=== PATIENT | male | born 1995 | race Caucasian/White ===

== ENCOUNTER → 2017-01-16 | Outpatient (CLI) | payer BC ==
[2017-01-16 19:44] LABS: Basophils % (A) 1 %; CH 26.1; CHCM 32.4; Eosinophils # (A) 0.1 k/uL (0-0.7); Eosinophils % (A) 2 %; HCT 48.9 % (39.0-53.0); HDW 2.44; HGB 15.4 gm/dL (13.0-17.5); Large Platelets Flag Slight; Luc # (Auto) 0.15; Luc % (Auto) 2; Lymphocytes # (A) 2.3 k/uL (1.0-4.8); Lymphocytes % (A) 30 %; MCH 25.5 pg (25.0-35.0); MCHC 31.5 g/dL (31.0-37.0); MCV 80.9 fL (80.0-100.0); Mean Platelet Volume 12.4; Monocytes # (A) 0.6 k/uL (0-1.0); Monocytes % (A) 7 %; Neutrophils # (A) 4.4 k/uL (1.3-7.7); Neutrophils % (A) 58 %; RBC 6.04 m/uL (4.30-5.90); RDW 14.1 % (11.5-15.5); WBC 7.6 k/uL (4.0-11.0); WBC (Perox) 7.66
[2017-01-16 19:52] LABS: ALT 49 U/L (21-72); AST 40 U/L (17-59); Alkaline Phosphatase 137 U/L (38-126); Anion Gap 14 mmol/L; Blood Urea Nitrogen 9 mg/dL (9-20); Calcium 9.8 mg/dL (8.4-10.2); Carbon Dioxide 27 mmol/L (22-30); Chloride 98 mmol/L (98-107); Cholesterol 113 mg/dL (<200); Glucose 87 mg/dL (74-99); HDL Cholesterol 36 mg/dL (40-60); Non-African American GFR(MDRD) >60 (>60 ml/min/1.73 sqM); Potassium 4.4 mmol/L (3.5-5.1); Sodium 139 mmol/L (137-145); Total Bilirubin 0.6 mg/dL (0.2-1.3); Total Protein 7.2 g/dL (6.3-8.2)
== END | disposition home or self-care (01) ==
LOC: MMGSC 10:08
PROVIDERS: ATTEND Family Medicine
DX: Z00.00 Encounter for general adult medical examination without abnormal findings (principal); R25.1 Tremor, unspecified; R51 Headache
CPT/HCPCS: 36415; 80053; 80061; 84439; 84443; 85025

== ENCOUNTER 2019-01-14 23:33 | Emergency (ER) | payer BC ==
[2019-01-15] MEDS ORDERED: IBUPROFEN 600 MG TAB PO STA (00:06)
[2019-01-15] MEDS ORDERED: SODIUM CHLORIDE 0.9% 1,000 ML IV STA (00:07)
[2019-01-15 01:13] LABS: Appearance,Urine Clear (Clear); Bilirubin,Urine Negative (Negative); Blood,Urine Negative (Negative); Color,Urine Light Yellow; Glucose,Urine (UA) Negative (Negative); Ketones,Urine Negative (Negative); Leukocyte Esterase,Urine Negative (Negative); Nitrite,Urine Negative (Negative); Protein,Urine Negative (Negative); Specific Gravity,Urine 1.007 (1.001-1.035); Urobilinogen,Urine <2.0 mg/dL (<2.0)
[2019-01-15 01:13] LABS: Basophils % (A) 0 %; Eosinophils # (A) 0.1 k/uL (0-0.7); Eosinophils % (A) 1 %; Lymphocytes # (A) 0.6 k/uL (1.0-4.8); Lymphocytes % (A) 6 %; MCH 26.1 pg (25.0-35.0); MCV 76.7 fL (80.0-100.0); Mean Platelet Volume 9.5; Monocytes # (A) 0.5 k/uL (0-1.0); Monocytes % (A) 5 %; Neutrophils # (A) 9.2 k/uL (1.3-7.7); Neutrophils % (A) 88 %; Platelet Count 180 k/uL (150-450); RBC 5.36 m/uL (4.30-5.90); RDW 12.9 % (11.5-15.5); WBC 10.4 k/uL (3.8-10.6)
[2019-01-15 01:22] LABS: ALT 57 U/L (21-72); AST 50 U/L (17-59); African American GFR (CKD) >90 (>60 ml/min/1.73 sqM); Albumin 4.3 g/dL (3.5-5.0); Alkaline Phosphatase 176 U/L (38-126); Anion Gap 8 mmol/L; Blood Urea Nitrogen 12 mg/dL (9-20); Calcium 9.1 mg/dL (8.4-10.2); Carbon Dioxide 30 mmol/L (22-30); Chloride 98 mmol/L (98-107); Glucose 120 mg/dL (74-99); Potassium 3.8 mmol/L (3.5-5.1); Sodium 136 mmol/L (137-145); Total Bilirubin 0.9 mg/dL (0.2-1.3); Total Protein 6.6 g/dL (6.3-8.2)
--- NOTE | 2019-01-15 01:47 | XR ---
EXAM: XR Chest, 2 Views CLINICAL HISTORY: Reason: cough TECHNIQUE: Frontal and lateral views of the chest. COMPARISON: No relevant prior studies available. FINDINGS: Lungs: Unremarkable. No consolidation. Pleural space: Unremarkable. No pneumothorax. Heart: Unremarkable. No cardiomegaly. Mediastinum: Unremarkable. Bones/joints: Unremarkable. IMPRESSION: Normal chest x-rays.
--- NOTE | 2019-01-15 02:12 | CT ---
EXAM: CT Head Without Intravenous Contrast CLINICAL HISTORY: pain TECHNIQUE: Axial computed tomography images of the head/brain without intravenous contrast. CTDI is 37.4 mGy and DLP is 1275.3 mGy-cm. This CT exam was performed using one or more of the following dose reduction techniques: automated exposure control, adjustment of the mA and/or kV according to patient size, and/or use of iterative reconstruction technique. COMPARISON: No relevant prior studies available. FINDINGS: Brain: Unremarkable. No hemorrhage. No significant white matter disease. No edema. Ventricles: Unremarkable. No ventriculomegaly. Bones/joints: Unremarkable. No acute fracture. Soft tissues: Unremarkable. Sinuses: Unremarkable as visualized. No acute sinusitis. Mastoid air cells: Unremarkable as visualized. No mastoid effusion. IMPRESSION: No acute abnormality in the brain
--- NOTE | 2019-01-15 02:15 | CT ---
EXAM: CT Cervical Spine With Intravenous Contrast CLINICAL HISTORY: Reason: Pain TECHNIQUE: Axial computed tomography images of the cervical spine with intravenous contrast. CTDI is 37.4 mGy and DLP is 1275.3 mGy-cm. This CT exam was performed using one or more of the following dose reduction techniques: automated exposure control, adjustment of the mA and/or kV according to patient size, and/or use of iterative reconstruction technique. COMPARISON: No relevant prior studies available. FINDINGS: Vertebrae: Unremarkable. No acute fracture. Discs/spinal canal/neural foramina: No acute findings. No spinal canal stenosis. Soft tissues: Unremarkable. IMPRESSION: No evidence for fracture or malalignment of cervical spine.
--- NOTE | 2019-01-15 02:32 | CT ---
EXAM: CT Thoracic Spine with Intravenous Contrast CLINICAL HISTORY: Pain TECHNIQUE: Axial computed tomography images of the thoracic spine without 100 mL of Isovue-300 intravenous contrast. DLP is 1275.3 mGy-cm. This CT exam was performed using one or more of the following dose reduction techniques: automated exposure control, adjustment of the mA and/or kV according to patient size, and/or use of iterative reconstruction technique. COMPARISON: No relevant prior studies available. FINDINGS: Vertebrae: Slight S-shaped scoliotic deformity of the thoracolumbar spine. No evidence for compression deformity. No evidence for lytic or blastic lesions. Discs/spinal canal/neural foramina: No acute findings. No evidence for erosive changes of the endplates to suggest osteomyelitis. No evidence for gas within the disc spaces. No spinal canal stenosis. Soft tissues: Unremarkable. No abnormal enhancement paraspinous tissues. Visualized portions of the lungs are unremarkable IMPRESSION: Unremarkable thoracic spine CT with contrast. If clinical concern exists for discitis or epidural abnormality further evaluation with MRI is recommended
[2019-01-15] MEDS ORDERED: ACETAMINOPHEN TAB 325 MG TAB PO STA (02:53)
--- NOTE | 2019-01-15 02:56 | ED ---
Fever HPI - General Chief Complaint: Fever Stated Complaint: Fever Time Seen by Provider: 01/14/19 23:45 Source: patient, family Mode of arrival: ambulatory Limitations: no limitations - History of Present Illness Initial Comments: The patient is a 24-year-old male who presents to the ED with reported fever since 9:00 pm. He also reported high thoracic/lumbar back pain. He reports to cold-like symptoms for the past week. Admits to a runny nose. He has had a mild cough. Denies productive cough. He denies cervical neck pain, headaches or visual changes. There is no reported confusion, slurred speech or unilateral numbness or weakness from the patient. He denies any chest pain or shortness of breath. No abdominal pain. Denies any diarrhea, constipation, melanotic stools or hematochezia. Denies any changes in his urination. Denies sexually transmitted infections. No history of IV drug use. Denies sore throat. No sick contacts or recent travel. There are no other alleviating, precipitating or modifying factors - Related Data Home Medications Medication Instructions Recorded Confirmed Zicam 1 tab PO Q3H PRN 01/14/19 01/14/19 Allergies Allergy/AdvReac Type Severity Reaction Status Date / Time No Known Allergies Allergy Verified 01/14/19 23:46 Review of Systems ROS Statement: Those systems with pertinent positive or pertinent negative responses have been documented in the HPI. ROS Other: All systems not noted in ROS Statement are negative. Past Medical History Past Medical History: No Reported History History of Any Multi-Drug Resistant Organisms: None Reported Past Surgical History: Appendectomy Past Psychological History: No Psychological Hx Reported Smoking Status: Never smoker Past Alcohol Use History: None Reported Past Drug Use History: None Reported General Exam Limitations: no limitations General appearance: alert, in no apparent distress Head exam: Present: atraumatic, normocephalic, normal inspection Eye exam: Present: normal appearance, PERRL, EOMI. Absent: scleral icterus, conjunctival injection, periorbital swelling ENT exam: Present: normal exam, mucous membranes moist Neck exam: Present: normal inspection, tenderness (mild paraspinal tenderness on the right near C7-T4. No spinous process tenderness. No nuchal rigidity. Patient can appropriately move his head in all directions without difficulty). Absent: meningismus, lymphadenopathy Respiratory exam: Present: normal lung sounds bilaterally. Absent: respiratory distress, wheezes, rales, rhonchi, stridor Cardiovascular Exam: Present: regular rate, normal rhythm, normal heart sounds. Absent: systolic murmur, diastolic murmur, rubs, gallop, clicks GI/Abdominal exam: Present: soft, normal bowel sounds. Absent: distended, tenderness, guarding, rebound, rigid Extremities exam: Present: normal inspection, full ROM, normal capillary refill. Absent: tenderness, pedal edema, joint swelling, calf tenderness Back exam: Present: normal inspection Neurological exam: Present: alert, oriented X3, CN II-XII intact Psychiatric exam: Present: normal affect, normal mood Skin exam: Present: warm, dry, intact, normal color. Absent: rash Course Vital Signs 01/14/19 01/15/19 01/15/19 23:35 02:04 03:26 Temperature 102.8 F H 100.2 F H 99.6 F Pulse Rate 115 H 100 110 H Respiratory 18 17 18 Rate Blood Pressure 131/69 109/55 109/65 O2 Sat by Pulse 100 98 98 Oximetry Medical Decision Making - Medical Decision Making The patient is placed in room 5. He is hooked up to continuous pulse ox and cardiac monitoring. Vitals are obtain and the patient has a temp of 102. He is given Motrin for fever control. I did recommend laboratory studies and a urinalysis. I also recommended a CT of the patient's brain, cervical and thor acic spine. The patient does agree to this. A chest x-ray was also performed. Upon return of the results I did discuss them with the patient. I discussed diagnosis, differential and treatment options. The patient's fever has improved. He reports to decrease pain. I did recommend a lumbar puncture. The risks and benefits are discussed. The patient's parents are at bedside. They do decline a lumbar puncture at this time. They state that they will take the patient home and observe him closely over the next 24 hours. I did stress to them that he does need close observation. They're to give Motrin and Tylenol every 4 hours for fever control. If the patient has any new or worsening s ymptoms they need to immediately bring the patient back to the emergency room. The patient and his parents were all in agreement with the treatment plan. He was discharged home in stable condition. - Lab Data Result diagrams: 01/15/19 01:00 01/15/19 01:00 Lab Results 01/15/19 01/15/19 01/15/19 Range/Units 00:39 01:00 01:00 WBC 10.4 (3.8-10.6) k/uL RBC 5.36 (4.30-5.90) m/uL Hgb 14.0 (13.0-17.5) gm/dL Hct 41.0 (39.0-53.0) % MCV 76.7 L (80.0-100.0) fL MCH 26.1 (25.0-35.0) pg MCHC 34.0 (31.0-37.0) g/dL RDW 12.9 (11.5-15.5) % Plt Count 180 (150-450) k/uL Neutrophils % 88 % Lymphocytes % 6 % Monocytes % 5 % Eosinophils % 1 % Basophils % 0 % Neutrophils # 9.2 H (1.3-7.7) k/uL Lymphocytes # 0.6 L (1.0-4.8) k/uL Monocytes # 0.5 (0-1.0) k/uL Eosinophils # 0.1 (0-0.7) k/uL Basophils # 0.0 (0-0.2) k/uL Sodium 136 L (137-145) mmol/L Potassium 3.8 (3.5-5.1) mmol/L Chloride 98 (98-107) mmol/L Carbon Dioxide 30 (22-30) mmol/L Anion Gap 8 mmol/L BUN 12 (9-20) mg/dL Creatinine 0.77 (0.66-1.25) mg/dL Est GFR (CKD-EPI)AfAm >90 (>60 ml/min/1.73 sqM) Est GFR (CKD-EPI)NonAf >90 (>60 ml/min/1.73 sqM) Glucose 120 H (74-99) mg/dL Plasma Lactic Acid Gurpreet (0.7-2.0) mmol/L Calcium 9.1 (8.4-10.2) mg/dL Total Bilirubin 0.9 (0.2-1.3) mg/dL AST 50 (17-59) U/L ALT 57 (21-72) U/L Alkaline Phosphatase 176 H (38-126) U/L Total Protein 6.6 (6.3-8.2) g/dL Albumin 4.3 (3.5-5.0) g/dL Urine Color Light Yellow Urine Appearance Clear (Clear) Urine pH 8.0 (5.0-8.0) Ur Specific [place] 1.007 (1.001-1.035) Urine Protein Negative (Negative) Urine Glucose (UA) Negative (Negative) Urine Ketones Negative (Negative) Urine Blood Negative (Negative) Urine Nitrite Negative (Negative) Urine Bilirubin Negative (Negative) Urine Urobilinogen <2.0 (<2.0) mg/dL Ur Leukocyte Esterase Negative (Negative) Influenza Type A RNA (Not Detectd) Influenza Type B (PCR) (Not Detectd) 01/15/19 01/15/19 Range/Units 01:00 01:00 WBC (3.8-10.6) k/uL RBC (4.30-5.90) m/uL Hgb (13.0-17.5) gm/dL Hct (39.0-53.0) % MCV (80.0-100.0) fL MCH (25.0-35.0) pg MCHC (31.0-37.0) g/dL RDW (11.5-15.5) % Plt Count (150-450) k/uL Neutrophils % % Lymphocytes % % Monocytes % % Eosinophils % % Basophils % % Neutrophils # (1.3-7.7) k/uL Lymphocytes # (1.0-4.8) k/uL Monocytes # (0-1.0) k/uL Eosinophils # (0-0.7) k/uL Basophils # (0-0.2) k/uL Sodium (137-145) mmol/L Potassium (3.5-5.1) mmol/L Chloride (98-107) mmol/L Carbon Dioxide (22-30) mmol/L Anion Gap mmol/L BUN (9-20) mg/dL Creatinine (0.66-1.25) mg/dL Est GFR (CKD-EPI)AfAm (>60 ml/min/1.73 sqM) Est GFR (CKD-EPI)NonAf (>60 ml/min/1.73 sqM) Glucose (74-99) mg/dL Plasma Lactic Acid Gurpreet 1.0 (0.7-2.0) mmol/L Calcium (8.4-10.2) mg/dL Total Bilirubin (0.2-1.3) mg/dL AST (17-59) U/L ALT (21-72) U/L Alkaline Phosphatase (38-126) U/L Total Protein (6.3-8.2) g/dL Albumin (3.5-5.0) g/dL Urine Color Urine Appearance (Clear) Urine pH (5.0-8.0) Ur Specific [place]ifer (1.001-1.035) Urine Protein (Negative) Urine Glucose (UA) (Negative) Urine Ketones (Negative) Urine Blood (Negative) Urine Nitrite (Negative) Urine Bilirubin (Negative) Urine Urobilinogen (<2.0) mg/dL Ur Leukocyte Esterase (Negative) Influenza Type A RNA Not Detected (Not Detectd) Influenza Type B (PCR) Not Detected (Not Detectd) Disposition Clinical Impression: Fever Disposition: HOME SELF-CARE Condition: Stable Instructions (If sedation given, give patient instructions): Fever in Adults (ED) Additional Instructions: Please follow-up with your primary care physician in 2-4 days. Return to the emergency room for any new or worsening symptoms Is patient prescribed a controlled substance at d/c from ED?: No Referrals: Effie Ramirez MD [Primary Care Provider] - 1-2 days Time of Disposition: 02:55
[2019-01-15 03:31] VITALS: BP 109/65; PULSE 110; RESP 18; TEMP 99.6
== END 2019-01-15 03:31 | disposition home or self-care (01) ==
LOC: EC 23:33
DX: R50.9 Fever, unspecified (principal); M54.6 Pain in thoracic spine; M54.5 Low back pain; R05 Cough; Z53.29 Procedure and treatment not carried out because of patient's decision for other reasons
CPT/HCPCS: 99284; 96360; 96361; 36415; 80053; 83605; 85025; 81003; 87502; 71046; 72129; 72126; 70450; Q9967

== ENCOUNTER 2022-03-14 16:07 | Emergency (ER) | payer BC ==
[2022-03-14 16:14] VITALS: BP 134/86; PULSE 74; RESP 16; TEMP 98
--- NOTE | 2022-03-14 16:51 | ED ---
Head Injury HPI - General Chief complaint: Head Injury Stated complaint: head injury Time Seen by Provider: 03/14/22 16:17 Source: patient, family, RN notes reviewed Mode of arrival: ambulatory Limitations: no limitations - History of Present Illness Initial comments: Patient is a pleasant 27-year-old male presents to the emergency room with complaints of mild headache and mild neck pain which he has not taken any medication ongoing with various degrees of intensity since accidentally running into a wall at work on Monday night. He reports also hitting his right shoulder on the wall is well. He denies any swelling bruising or range of motion impairment to his left shoulder. He denies any loss of consciousness at the time of the event. He did have some mild dizziness at the time of the injury but denies any at this time. He reports that with prolonged screen time his headache worsened slightly. He denies any nausea, vomiting, lethargy, altered mental status, wounds or bruises. Overall he is healthy and does not take any medications on a regular basis. His vaccinations are up-to-date. - Related Data Home Medications Medication Instructions Recorded Confirmed Zicam 1 tab PO Q3H PRN 01/14/19 01/14/19 Allergies/Adverse reactions: Allergies Allergy/AdvReac Type Severity Reaction Status Date / Time No Known Allergies Allergy Verified 03/14/22 16:14 Review of Systems ROS Statement: Those systems with pertinent positive or pertinent negative responses have been documented in the HPI. ROS Other: All systems not noted in ROS Statement are negative. Past Medical History Past Medical History: No Reported History History of Any Multi-Drug Resistant Organisms: None Reported Past Surgical History: Appendectomy, Orthopedic Surgery Past Psychological History: No Psychological Hx Reported Smoking Status: Never smoker Past Alcohol Use History: Occasional Past Drug Use History: None Reported General Exam Limitations: no limitations General appearance: alert, in no apparent distress Head exam: Present: atraumatic, normocephalic, normal inspection Eye exam: Present: normal appearance, PERRL, EOMI. Absent: scleral icterus, conjunctival injection, nystagmus, periorbital swelling ENT exam: Present: normal exam, mucous membranes moist Neck exam: Present: normal inspection. Absent: tenderness, meningismus, lymphadenopathy Respiratory exam: Absent: respiratory distress, accessory muscle use Cardiovascular Exam: Present: regular rate GI/Abdominal exam: Present: soft. Absent: distended Extremities exam: Present: normal inspection, full ROM, normal capillary refill. Absent: tenderness, pedal edema, joint swelling, calf tenderness Right Shoulder Exam: Present: normal inspection, full ROM. Absent: tenderness, swelling, abrasion, laceration, ecchymosis, deformity, crepitus, dislocation, erythema, tenderness over AC joint Back exam: Present: normal inspection, full ROM. Absent: tenderness Neurological exam: Present: alert, oriented X3, CN II-XII intact Expanded Neurological exam: Present: protecting the airway Cranial nerves: EOM's Intact: Normal, Gag Reflex: Normal Sensory exam: Upper Extremity Light Touch: Normal, Lower Extremity Light Touch: Normal, LE 2 Point Discrimination: Normal Motor strength exam: RUE: 5, LUE: 5, RLE: 5, LLE: 5 Eye Response: (4) open spontaneously Motor Response: (6) obeys commands Verbal Response: (5) oriented [place] Total: 15 Psychiatric exam: Present: normal affect, normal mood Skin exam: Present: warm, dry, intact, normal color. Absent: rash Course Vital Signs 03/14/22 16:10 Temperature 98 F Pulse Rate 74 Respiratory 16 Rate Blood Pressure 134/86 O2 Sat by Pulse 100 Oximetry Medical Decision Making - Medical Decision Making 27-year-old male presenting to the emergency room after hitting his head and shoulder on a wall Monday evening (2 days ago). No loss of consciousness or severe concussive symptoms. No focal neurological deficits or range of motion impairment to his left shoulder. Discussed risks benefits of computed tomography scan both patient and family at bedside agreeable to no need for diagnostic imaging. No indication for diagnostic testing or laboratory studies. Will discharge home with symptomatic treatment for headache and neck pain and continued monitoring of concussive symptoms. Return parameters to the emergency room discussed at length. Advised avoidance of contact sports or high impact activities until symptoms resolve. Case discussed with Dr. Nicholas. Disposition Clinical Impression: Concussion without loss of consciousness Disposition: HOME SELF-CARE Condition: Stable Instructions (If sedation given, give patient instructions): Concussion (ED) Additional Instructions: Please utilize ibuprofen or Tylenol [id number] as needed to treat headache and neck pain. Please monitor for concussive symptoms and return to the emergency room if any worsening of symptoms. Please follow-up with your primary care provider. Please return to the Emergency Department if symptoms worsen or any other concerns. Is patient prescribed a controlled substance at d/c from ED?: No Referrals: Altaf Carr MD [Primary Care Provider] - 1-2 days Time of Disposition: 16:48
== END 2022-03-14 17:05 | disposition home or self-care (01) ==
LOC: EC 16:07
DX: S06.0X0A Concussion without loss of consciousness, initial encounter (principal); W22.09XA Striking against other stationary object, initial encounter
CPT/HCPCS: 99283